=== PATIENT | female | born 1985 | race African-American/Black ===

== ENCOUNTER 2018-09-30 10:52 | Emergency (ER) | payer OTHER ==
[2018-09-30 11:03] VITALS: BP 136/83
--- NOTE | 2018-09-30 11:06 | Event Note ---
ED Screening Note Date of service: 09/30/18 Time: 11:00 ED Screening Note: 32 y/o female comes in for 5 day history of neck pain and difficultly to move neck no fever. No trauma This initial assessment/diagnostic orders/clinical plan/treatment(s) is/are subject to change based on patients health status, clinical progression and re- assessment by fellow clinical providers in the ED. Further treatment and workup at subsequent clinical providers discretion. Patient/guardian urged not to elope from the ED as their condition may be serious if not clinically assessed and managed. Initial orders include:
[2018-09-30] MEDS ORDERED: TORADOL IM ONE (11:10)
--- NOTE | 2018-09-30 12:00 | Emergency Department Report ---
ED Neck Pain/Injury HPI - General Chief Complaint: Neck Pain/Injury Stated Complaint: NECK PAIN Time Seen by Provider: 09/30/18 11:09 Mode of arrival: Ambulatory Limitations: No Limitations - History of Present Illness Initial Comments: Patient is a 32-year-old female who is presenting with left-sided neck pain that extends down through her shoulder. Patient's pain been present for the past 4 days. 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 Patient states pain is worse when she turns her head she has moved very slowly. She denies any headache fevers chills, cold or congestion at this time. Pain is a 10 out of 10 at its worst. Patient states that her neck feels tight - Related Data Previous Rx's Medication Instructions Recorded Last Taken Type Ibuprofen [Motrin 600 MG tab] 600 mg PO Q8H PRN #20 tablet 09/30/18 Unknown Rx methOCARBAMOL [Robaxin TAB] 500 mg PO Q6H PRN #14 tablet 09/30/18 Unknown Rx traMADol [Ultram] 50 mg PO Q6HR PRN #12 tablet 09/30/18 Unknown Rx Allergies Allergy/AdvReac Type Severity Reaction Status Date / Time No Known Allergies Allergy Unverified 09/30/18 10:57 ED Review of Systems ROS: Stated complaint: NECK PAIN Other details as noted in HPI Comment: All other systems reviewed and negative ED Past Medical Hx - Past Medical History Previous Medical History?: No - Surgical History Past Surgical History?: No - Social History Smoking Status: Never Smoker Substance Use Type: None - Medications Home Medications: Home Medications Medication Instructions Recorded Confirmed Last Taken Type Ibuprofen [Motrin 600 MG tab] 600 mg PO Q8H PRN #20 tablet 09/30/18 Unknown Rx methOCARBAMOL [Robaxin TAB] 500 mg PO Q6H PRN #14 tablet 09/30/18 Unknown Rx traMADol [Ultram] 50 mg PO Q6HR PRN #12 tablet 09/30/18 Unknown Rx ED Physical Exam - General Limitations: No Limitations General appearance: alert, in no apparent distress - Head Head exam: Present: atraumatic, normocephalic - Eye Eye exam: Present: normal appearance - ENT ENT exam: Present: mucous membranes moist - Neck Neck exam: Present: normal inspection, tenderness. Absent: full ROM (secondary to pain), lymphadenopathy - Respiratory Respiratory exam: Present: normal lung sounds bilaterally. Absent: respiratory distress, wheezes, rales - Cardiovascular Cardiovascular Exam: Present: regular rate, normal rhythm, normal heart sounds. Absent: systolic murmur, diastolic murmur, rubs, gallop - GI/Abdominal GI/Abdominal exam: Present: soft, normal bowel sounds. Absent: distended, tenderness, guarding - Extremities Exam Extremities exam: Present: normal inspection - Back Exam Back exam: Present: normal inspection - Neurological Exam Neurological exam: Present: alert, oriented X3 - Psychiatric Psychiatric exam: Present: normal affect, normal mood - Skin Skin exam: Present: warm, dry, intact, normal color. Absent: rash ED Course Vital Signs 09/30/18 11:00 Temperature 98.2 F Pulse Rate 60 Respiratory 18 Rate Blood Pressure 136/83 O2 Sat by Pulse 99 Oximetry ED Medical Decision Making - Radiology Data Radiology results: image reviewed (there is loss of natural curvature of the cervical spine indicative of lumbar strain) - Medical Decision Making Patient likely with torticollis and will be given this symptomatically. Patient given Toradol and did have some relief here in the emergency department Critical care attestation.: If time is entered above; I have spent that time in minutes in the direct care of this critically ill patient, excluding procedure time. ED Disposition Clinical Impression: Acute torticollis Disposition: DC-01 TO HOME OR SELFCARE Is pt being admited?: No Does the pt Need Aspirin: No Condition: Stable Instructions: Spasmodic Torticollis (ED) Referrals: LORI ALMAGUER MD [Primary Care Provider] - 3-5 Days Time of Disposition: 11:59
--- NOTE | 2018-09-30 12:12 | XRay Report ---
PROCEDURE: XR SPINE CERVICAL 2-3V TECHNIQUE: AP, lateral and open mouth odontoid views of the cervical spine. HISTORY: neck pain COMPARISONS: None. FINDINGS: The cervical spine was visualized through T1. Reversal of the normal cervical lordosis is likely rela marbella to patient positioning or muscle spasm. Normal alignment. No cervical spine fracture. The disc spaces are maintained. The prevertebral soft tissues are normal. The odontoid is normal in position between the lateral masses of C1. IMPRESSION: Reversal of the normal cervical lordosis is likely related to patient positioning or muscle spasm. Ot herwise no cervical spine abnormality. This document is electronically signed by Cristal Benitez., September 30 2018 12:10:51 PM ET
== END 2018-09-30 12:03 | disposition home or self-care (01) ==
LOC: EDBD → ED 10:52
DX: M43.6 Torticollis (principal)
CPT/HCPCS: 72040; 96372; 99283; J1885

== ENCOUNTER 2020-05-28 10:17 | Emergency (ER) | payer SELFPAY ==
[2020-05-28 10:22] VITALS: BP 135/88
--- NOTE | 2020-05-28 10:28 | Emergency Department Report ---
ED ENT HPI - General Chief complaint: Sore Throat Stated complaint: TONSILS SWOLLEN Time Seen by Provider: 05/28/20 10:23 Source: family Mode of arrival: Ambulatory Limitations: Language Barrier - History of Present Illness Initial comments: This is a 34-year-old female nontoxic, well nourished in appearance, no acute signs of distress presents to the ED with c/o of sore throat. Patient describes sore throat as swallowing razer blades. Patient denies any fever, chills, headache, stiff neck, nausea, vomiting, chest pain, shortness of breath, numbnes s or tingling. Patient denies any drooling or hoarseness. Patient denies any allergies or significant past medical history. Son is present during the full physical exam for translation purposes. MD complaint: sore throat -: days(s) Location: throat Severity: mild Severity scale (0 -10): 8 Quality: aching Consistency: constant Improves with: none Worsens with: swallowing Associated Symptoms: pain with swallowing, sore throat. denies: fever, cough, gum swelling, toothache, tinnitus, hearing loss, discharge from ear, rhinorrhea - Related Data Previous Rx's Medication Instructions Recorded Last Taken Type Ibuprofen [Motrin 600 MG tab] 600 mg PO Q8H PRN #20 tablet 09/30/18 Unknown Rx methOCARBAMOL [Robaxin TAB] 500 mg PO Q6H PRN #14 tablet 09/30/18 Unknown Rx traMADoL [Ultram] 50 mg PO Q6HR PRN #12 tablet 09/30/18 Unknown Rx Amoxicillin [Amoxicillin TAB] 875 mg PO BID #20 tablet 05/28/20 Unknown Rx Nystas/Diphen/Xyl Visc/Mylanta 15 ml MM Q6H PRN 5 Days bottle 05/28/20 Unknown Rx [Magic Mouthwash] Allergies Allergy/AdvReac Type Severity Reaction Status Date / Time No Known Allergies Allergy Unverified 09/30/18 10:57 ED Dental HPI - General Chief complaint: Sore Throat Stated complaint: TONSILS SWOLLEN Time Seen by Provider: 05/28/20 10:23 Source: family Mode of arrival: Ambulatory Limitations: Language Barrier - Related Data Previous Rx's Medication Instructions Recorded Last Taken Type Ibuprofen [Motrin 600 MG tab] 600 mg PO Q8H PRN #20 tablet 06/29/19 Unknown Rx methOCARBAMOL [Robaxin TAB] 500 mg PO Q6H PRN #14 tablet 09/30/18 Unknown Rx traMADoL [Ultram] 50 mg PO Q6HR PRN #12 tablet 09/30/18 Unknown Rx Amoxicillin [Amoxicillin TAB] 875 mg PO BID #20 tablet 05/28/20 Unknown Rx Nystas/Diphen/Xyl Visc/Mylanta 15 ml MM Q6H PRN 5 Days bottle 05/28/20 Unknown Rx [Magic Mouthwash] Allergies Allergy/AdvReac Type Severity Reaction Status Date / Time No Known Allergies Allergy Unverified 09/30/18 10:57 ED Review of Systems ROS: Stated complaint: TONSILS SWOLLEN Other details as noted in HPI Comment: All other systems reviewed and negative Constitutional: denies: chills, fever Eyes: denies: eye pain, eye discharge, vision change ENT: throat pain. denies: ear pain Respiratory: denies: cough, shortness of breath, wheezing Cardiovascular: denies: chest pain, palpitations Endocrine: no symptoms reported Gastrointestinal: denies: abdominal pain, nausea, diarrhea Genitourinary: denies: urgency, dysuria, discharge Musculoskeletal: denies: back pain, joint swelling, arthralgia Skin: denies: rash, lesions Neurological: denies: headache, weakness, paresthesias Psychiatric: denies: anxiety, depression Hematological/Lymphatic: denies: easy bleeding, easy bruising ED Past Medical Hx - Social History Smoking Status: Never Smoker Substance Use Type: None - Medications Home Medications: Home Medications Medication Instructions Recorded Confirmed Last Taken Type Ibuprofen [Motrin 600 MG tab] 600 mg PO Q8H PRN #20 tablet 09/30/18 Unknown Rx methOCARBAMOL [Robaxin TAB] 500 mg PO Q6H PRN #14 tablet 09/30/18 Unknown Rx traMADoL [Ultram] 50 mg PO Q6HR PRN #12 tablet 09/30/18 Unknown Rx Amoxicillin [Amoxicillin TAB] 875 mg PO BID #20 tablet 05/28/20 Unknown Rx Nystas/Diphen/Xyl Visc/Mylanta 15 ml MM Q6H PRN 5 Days bottle 05/28/20 Unknown Rx [Magic Mouthwash] ED Physical Exam - General Limitations: Language Barrier General appearance: alert, in no apparent distress - Head Head exam: Present: atraumatic, normocephalic - Eye Eye exam: Present: normal appearance - Expanded ENT Exam Expanded Ear exam: Present: normal external inspection Mouth exam: Present: normal external inspection, tongue normal. Absent: drooling, trismus, muffled voice Teeth exam: Present: normal inspection Throat exam: Positive: tonsillar erythema, tonsillomegaly (2+), other (Uvula midline). Negative: tonsillar exudate, R peritonsillar mass, L peritonsillar mass - Neck Neck exam: Present: normal inspection, full ROM. Absent: tenderness, meningismus, lymphadenopathy - Respiratory Respiratory exam: Present: normal lung sounds bilaterally. Absent: respiratory distress, wheezes, rales, rhonchi, stridor, chest wall tenderness, accessory muscle use, decreased breath sounds, prolonged expiratory - Cardiovascular Cardiovascular Exam: Present: regular rate, normal rhythm, normal heart sounds. Absent: irregular rhythm, systolic murmur, diastolic murmur, rubs, gallop - Extremities Exam Extremities exam: Present: full ROM - Back Exam Back exam: Present: full ROM - Neurological Exam Neurological exam: Present: alert, oriented X3, normal gait - Psychiatric Psychiatric exam: Present: normal affect, normal mood - Skin Skin exam: Present: warm, dry, intact, normal color. Absent: rash ED Course Vital Signs 05/28/20 10:20 Temperature 98.8 F Pulse Rate 92 H Respiratory 18 Rate Blood Pressure 135/88 O2 Sat by Pulse 100 Oximetry - Reevaluation(s) Reevaluation #1: 05/28/20 10:26 Patient is speaking in full sentences with no signs of distress noted. ED Medical Decision Making - Medical Decision Making Patient is stable and was examined by me. Vital signs are stable. Patient be discharged with amoxicillin and Magic mouthwash. Patient was instructed to follow-up with a primary care doctor in 3-5 days or if symptoms worsen and continue return to emergency room as soon as possible. At time of discharge, the patient does not seem toxic or ill in appearance. No acute signs of distress noted. Patient agrees to discharge treatment plan of care. No further questions noted by the patient. Critical care attestation.: If time is entered above; I have spent that time in minutes in the direct care of this critically ill patient, excluding procedure time. ED Disposition Clinical Impression: Tonsillitis Pharyngitis Qualifiers: Pharyngitis/tonsillitis etiology: unspecified etiology Qualified Code(s): J02.9 - Acute pharyngitis, unspecified Disposition: TO HOME OR SELFCARE Is pt being admited?: No Does the pt Need Aspirin: No Condition: Stable Instructions: Tonsillitis, Pharyngitis, [id number] Additional Instructions: Follow-up with a primary care doctor in 3-5 days or if symptoms worsen and continue return to emergency room as soon as possible. Prescriptions: Amoxicillin [Amoxicillin TAB] 875 mg PO BID #20 tablet Nystas/Diphen/Xyl Visc/Mylanta [Magic Mouthwash] 15 ml MM Q6H PRN 5 Days bottle PRN Reason: Sore Throat Referrals: PRIMARY CARE, [Referring] - 3-5 Days TRAM GILLESPIE MD [Staff Physician] - 3-5 Days Time of Disposition: 10:28 Print Language: ALGERIAN
== END 2020-05-28 11:01 | disposition home or self-care (01) ==
LOC: ED 10:17
DX: J03.90 Acute tonsillitis, unspecified (principal); Z79.899 Other long term (current) drug therapy
CPT/HCPCS: 99282

== ENCOUNTER 2021-01-30 21:57 | Emergency (ER) | payer SELFPAY ==
[2021-01-30 22:19] VITALS: BP 137/82
[2021-01-30] MEDS ORDERED: fentaNYL 100 MCG/2 ML INJ IV ONE (22:21)
--- NOTE | 2021-01-30 22:32 | Emergency Department Report ---
ED Abdominal Pain HPI - General Chief Complaint: Abdominal Pain Stated Complaint: ABD PAIN Time Seen by Provider: 01/30/21 22:20 Source: patient Mode of arrival: Ambulatory Limitations: No Limitations - History of Present Illness Initial Comments: Patient presents with 1 day history of lower abdominal pain. Pain is in the midline in the lower abdomen and pelvis. It does not radiate or migrate. It seems to be crampy in nature and wax and wane. There is no trauma associated with this. She has had no nausea or vomiting. There is no vaginal bleeding. She has had no dysuria or discharge. She has never had pain like this before. She came in for evaluation treatment due to the pain. She cannot sit because the pain is so intense. - Related Data Previous Rx's Medication Instructions Recorded Last Taken Type methOCARBAMOL [Robaxin TAB] 500 mg PO Q6H PRN #14 tablet 09/30/18 Unknown Rx Amoxicillin [Amoxicillin TAB] 875 mg PO BID #20 tablet 05/28/20 Unknown Rx Nystas/Diphen/Xyl Visc/Mylanta 15 ml MM Q6H PRN 5 Days bottle 05/28/20 Unknown Rx [Magic Mouthwash] Ibuprofen [Motrin 600 MG tab] 600 mg PO Q8H PRN #20 tablet 01/31/21 Unknown Rx traMADoL [Ultram 50 MG tab] 50 mg PO Q6HR PRN #12 tablet 01/31/21 Unknown Rx Allergies Allergy/AdvReac Type Severity Reaction Status Date / Time No Known Allergies Allergy Unverified 09/30/18 10:57 ED Review of Systems ROS: Stated complaint: ABD PAIN Other details as noted in HPI Comment: All other systems reviewed and negative Constitutional: denies: fever Eyes: denies: eye pain ENT: denies: throat pain Respiratory: denies: cough Cardiovascular: denies: chest pain Endocrine: denies: unexplained weight loss Gastrointestinal: as per HPI Genitourinary: denies: dysuria Musculoskeletal: denies: back pain Skin: denies: rash Neurological: denies: headache Hematological/Lymphatic: denies: easy bruising ED Past Medical Hx - Past Medical History Previous Medical History?: Yes Additional medical history: ovarian cysts - Surgical History Past Surgical History?: No - Family History Family history: no significant - Social History Smoking Status: Never Smoker Substance Use Type: None - Medications Home Medications: Home Medications Medication Instructions Recorded Confirmed Last Taken Type methOCARBAMOL [Robaxin TAB] 500 mg PO Q6H PRN #14 tablet 09/30/18 Unknown Rx Amoxicillin [Amoxicillin TAB] 875 mg PO BID #20 tablet 05/28/20 Unknown Rx Nystas/Diphen/Xyl Visc/Mylanta 15 ml MM Q6H PRN 5 Days bottle 05/28/20 Unknown Rx [Magic Mouthwash] Ibuprofen [Motrin 600 MG tab] 600 mg PO Q8H PRN #20 tablet 01/31/21 Unknown Rx traMADoL [Ultram 50 MG tab] 50 mg PO Q6HR PRN #12 tablet 01/31/21 Unknown Rx ED Physical Exam - General Limitations: No Limitations, Other (Pulse ox was noted and normal. She is not hypoxic.) General appearance: alert, in distress (Mild discomfort) - Head Head exam: Present: atraumatic, normocephalic, normal inspection - Eye Eye exam: Present: normal appearance, EOMI. Absent: scleral icterus - ENT ENT exam: Present: normal exam, normal orophraynx, normal external ear exam - Neck Neck exam: Present: normal inspection. Absent: meningismus - Respiratory Respiratory exam: Present: normal lung sounds bilaterally. Absent: respiratory distress - Cardiovascular Cardiovascular Exam: Present: regular rate, normal rhythm - GI/Abdominal GI/Abdominal exam: Present: soft, tenderness (Suprapubic). Absent: guarding, rebound - Extremities Exam Extremities exam: Present: normal capillary refill - Back Exam Back exam: Absent: CVA tenderness (R), CVA tenderness (L) - Neurological Exam Neurological exam: Present: alert, oriented X3, normal gait. Absent: motor sensory deficit - Psychiatric Psychiatric exam: Present: normal affect, normal mood - Skin Skin exam: Present: warm, dry ED Course Vital Signs 01/30/21 22:15 Temperature 98.2 F Pulse Rate 83 Respiratory 18 Rate Blood Pressure 137/82 O2 Sat by Pulse 97 Oximetry - Reevaluation(s) Reevaluation #1: 01/30/21 22:31 Labs were ordered. Old records reviewed. Reevaluation #2: 01/31/21 00:36 Labs are noted. Patient is not . Ectopic has been excluded. She was discharged. ED Medical Decision Making - Lab Data Result diagrams: 01/30/21 22:55 01/30/21 22:55 - Medical Decision Making Patient presents with lower abdominal pain of unclear etiology. She does not have colicky pain that is unilateral suggestive of torsion. She does not have hematuria or flank pain suggestive of ureteral colic. There is no evidence of urinary tract infection. She is not . Ectopic has been excluded. There is no tenderness over McBurney's point there was suggest appendicitis. Etiology for her discomfort is not known. At this time, she was treated sym ptomatically and referred for outpatient evaluation and follow-up. Critical Care Time: No Critical care attestation.: If time is entered above; I have spent that time in minutes in the direct care of this critically ill patient, excluding procedure time. ED Disposition Clinical Impression: Lower abdominal pain Disposition: HOME / SELF CARE / HOMELESS Is pt being admited?: No Condition: Stable Instructions: Abdominal Pain, Adult, [id number], Pain Without a Known Cause, Abdominal Pain (ED) Additional Instructions: Drink plenty water. Return for problems. Follow-up as discussed. If you do not have a family doctor, follow-up with the referral physician. Return for any new problems or symptoms. Prescriptions: Ibuprofen [Motrin 600 MG tab] 600 mg PO Q8H PRN #20 tablet PRN Reason: Pain traMADoL [Ultram 50 MG tab] 50 mg PO Q6HR PRN #12 tablet PRN Reason: Pain Referrals: PRIMARY CARE, [Referring] - 3-5 Days JUAN JOSE MOLINA MD [Staff Physician] - 3-5 Days Print Language: UKRAINIAN
[2021-01-30 23:21] LABS: Hematocrit 38.6 % (30.3-42.9); Hemoglobin 13.1 gm/dl (10.1-14.3); Mean Corpuscular HGB Conc 34 % (30-34); Mean Corpuscular Volume 86 fl (79-97); Platelet Count 227 K/mm3 (140-440); Red Blood Count 4.47 M/mm3 (3.65-5.03); Red Cell Distribution Width 12.7 % (13.2-15.2)
[2021-01-30 23:47] LABS: Blood Urea Nitrogen 11 mg/dL (7-17); Calcium 9.5 mg/dL (8.4-10.2); Hemolysis Index 18
[2021-01-30 23:49] LABS: BUN/Creatinine Ratio 18
[2021-01-31 00:16] LABS: Bilirubin,Urine NEG (Negative); Blood,Urine NEG (Negative); Color,Urine Yellow (Yellow); Protein,Urine <15 mg/dL mg/dL (Negative); Urobilinogen,Urine < 2.0 mg/dL (<2.0); WBC,Urine < 1.0 /HPF (0.0-6.0)
[2021-01-31] MEDS ORDERED: MORPHINE 4 MG/1 ML INJ IV ONE (00:36)
[2021-01-31] MEDS ORDERED: MORPHINE 2 MG/1 ML INJ IV ONE (02:00)
== END 2021-01-31 02:27 | disposition home or self-care (01) ==
LOC: ED 21:57
DX: R10.30 Lower abdominal pain, unspecified (principal); Z79.899 Other long term (current) drug therapy
CPT/HCPCS: 36415; 80048; 81001; 84703; 85027; 96374; 96375; 99283; J2270; J3010